=== PATIENT | female | born 1945 | race African-American/Black ===

== ENCOUNTER 2019-03-05 13:34 | Emergency (ER) | payer OTHER ==
[~2019-03-05] VITALS: Ht 165.1 cm; Wt 77.0 kg
[2019-03-05] MEDS ORDERED: ASPIRIN 81MG TABLET PO ONE (14:45)
[2019-03-05 15:08] LABS: BASOPHILS % 0.8 % (0.0-2.0); EOSINOPHILS % 1.6 % (0.0-5.0); HEMOGLOBIN. 11.8 g/dL (12.0-16.0); LYMPHOCYTES % 29.8 % (20.0-50.0); MEAN CORPUSCULAR HEMOGLOBIN 31.8 pg (28.0-32.0); MEAN CORPUSCULAR VOLUME 94.3 fL (81.0-99.0); MEAN PLATELET VOLUME 7.6 fl (7.4-10.4); MONOCYTES % 6.7 % (2.0-8.0); NEUTROPHILS % 61.1 % (40.0-76.0); PLATELET 258 x1000/uL (130-400); RED BLOOD CELL COUNT 3.71 mill/uL (4.2-5.4); RED CELL DISTRIBUTION WIDTH 13.2 % (11.6-14.6)
[2019-03-05 15:09] LABS: CHLORIDE 110 mEq/L (98-107)
[2019-03-05 18:54] VITALS: BP 171/69
== END 2019-03-05 19:13 | disposition short-term general hospital (02) ==
LOC: ER 13:34
DX: R07.9 Chest pain, unspecified (principal); E11.9 Type 2 diabetes mellitus without complications; I10 Essential (primary) hypertension; I20.9 Angina pectoris, unspecified; Z88.5 Allergy status to narcotic agent
CPT/HCPCS: 36415; 71045; 83880; 84484; 93005; 99285; A4315

== ENCOUNTER 2020-06-08 11:41 | Emergency (ER) | payer OTHER, MEDICARE ==
[~2020-06-08] VITALS: Ht 165.1 cm; Wt 68.0 kg
[2020-06-08] MEDS ORDERED: ASPIRIN 81MG TABLET PO ONE (12:15)
[2020-06-08 12:47] LABS: BASOPHILS % 0.5 % (0.0-2.0); HEMATOCRIT. 33.6 % (36.0-48.0); HEMOGLOBIN. 11.3 g/dL (12.0-16.0); MEAN CORPUSCULAR HEMOGLOBIN 31.5 pg (28.0-32.0); MEAN CORPUSCULAR VOLUME 93.7 fL (81.0-99.0); MEAN PLATELET VOLUME 7.5 fl (7.4-10.4); MONOCYTES % 8.3 % (2.0-8.0); NEUTROPHILS % 55.2 % (40.0-76.0); PLATELET 267 x1000/uL (130-400); RED BLOOD CELL COUNT 3.58 mill/uL (4.2-5.4); RED CELL DISTRIBUTION WIDTH 12.7 % (11.6-14.6)
[2020-06-08 12:55] LABS: CHLORIDE 109 mEq/L (98-107)
[2020-06-08 13:32] LABS: D-DIMER 0.31 mg/L FEU (<0.50); PARTIAL THROMBOPLASTIN TIME 25.3 sec (23.4-31.0); PROTHROMBIN TIME 10.4 sec (9.6-11.0)
[2020-06-08 16:10] VITALS: BP 147/62
== END 2020-06-08 16:11 | disposition short-term general hospital (02) ==
LOC: ER 11:41 → CANBEDREQ 16:45
DX: R07.89 Other chest pain (principal); I25.2 Old myocardial infarction; E11.9 Type 2 diabetes mellitus without complications; I10 Essential (primary) hypertension; Z88.5 Allergy status to narcotic agent
CPT/HCPCS: 36415; 71045; 80053; 83880; 84484; 85025; 85379; 85610; 85730; 93005; 99285; Z7610

== ENCOUNTER 2021-07-01 15:57 | Emergency (ER) | payer OTHER, MEDICARE ==
[~2021-07-01] VITALS: Ht 165.1 cm; Wt 70.0 kg
[2021-07-01] MEDS ORDERED: TETANUS, DIPHTHERIA, PERTUSSIS VAC/PF 0.5ML (>10YR OLD) IM ONE (17:00)
[2021-07-01] MEDS ORDERED: LIDOCAINE HCL/PF 1% 10 MG/ML 5ML VIAL INFIL ONE ×2 (17:00)
[2021-07-01] MEDS ORDERED: SODIUM CHLORIDE 0.9% 1,000 ML IV ONE (17:00)
[2021-07-01] MEDS ORDERED: BACITRACIN ZINC OINT UDPKT TOP ONE (17:00)
[2021-07-01 17:09] LABS: BASOPHILS % 0.4 % (0.0-2.0); EOSINOPHILS % 4.2 % (0.0-5.0); HEMATOCRIT. 31.8 % (36.0-48.0); HEMOGLOBIN. 10.5 g/dL (12.0-16.0); LYMPHOCYTES % 14.3 % (20.0-50.0); MEAN CORPUSCULAR HEMOGLOBIN 30.3 pg (28.0-32.0); MEAN PLATELET VOLUME 7.3 fl (7.4-10.4); MONOCYTES % 9.2 % (2.0-8.0); NEUTROPHILS % 71.9 % (40.0-76.0); PLATELET 355 x1000/uL (130-400); RED BLOOD CELL COUNT 3.46 mill/uL (4.2-5.4); RED CELL DISTRIBUTION WIDTH 12.9 % (11.6-14.6)
[2021-07-01 17:15] LABS: CHLORIDE 107 mEq/L (98-107)
[2021-07-01] MEDS ORDERED: LIDOCAINE HCL 1% 10 MG/ML 10ML VIAL INJ NR (17:15)
[2021-07-01] MEDS ORDERED: CEFTRIAXONE 1 G PREMIX 50 ML IV ONE (17:15)
[2021-07-01] MEDS ORDERED: ASPIRIN 325MG EC TABLET PO ONE (20:30)
[2021-07-02 00:32] VITALS: BP 122/52
== END 2021-07-01 23:44 ==
LOC: ER 15:57
DX: R55 Syncope and collapse (principal); S01.312A Laceration without foreign body of left ear, initial encounter; E11.9 Type 2 diabetes mellitus without complications; I10 Essential (primary) hypertension; I25.10 Atherosclerotic heart disease of native coronary artery without angina pectoris; I25.2 Old myocardial infarction; W18.39XA Other fall on same level, initial encounter; Y93.89 Activity, other specified; Y92.512 Supermarket, store or market as the place of occurrence of the external cause; Z88.6 Allergy status to analgesic agent
CPT/HCPCS: 12011; 36415; 70450; 71045; 80053; 82962; 83880; 84484; 85025; 90471; 90715; 93005; 96365; 99285; J0696; J3490; J7030

== ENCOUNTER 2021-08-10 14:04 | Emergency (ER) | payer OTHER, MEDICARE ==
[~2021-08-10] VITALS: Ht 167.6 cm; Wt 70.0 kg
[2021-08-10] MEDS ORDERED: ACETAMINOPHEN 325MG TABLET PO STA (14:54)
[2021-08-10] MEDS ORDERED: SODIUM CHLORIDE 0.9% 1,000 ML IV ONE (15:00)
[2021-08-10 15:04] LABS: BASOPHILS % 0.3 % (0.0-2.0); HEMATOCRIT. 26.4 % (36.0-48.0); HEMOGLOBIN. 8.2 g/dL (12.0-16.0); LYMPHOCYTES % 9.7 % (20.0-50.0); MEAN CORPUSCULAR HEMOGLOBIN 28.7 pg (28.0-32.0); MEAN CORPUSCULAR VOLUME 92.9 fL (81.0-99.0); MEAN PLATELET VOLUME 8.7 fl (7.4-10.4); MONOCYTES % 7.7 % (2.0-8.0); NEUTROPHILS % 79.3 % (40.0-76.0); PLATELET 356 x1000/uL (130-400); RED BLOOD CELL COUNT 2.84 mill/uL (4.2-5.4); RED CELL DISTRIBUTION WIDTH 16.8 % (11.6-14.6)
[2021-08-10 15:14] LABS: CHLORIDE 108 mEq/L (98-107)
[2021-08-10] MEDS ORDERED: VANCOMYCIN 1G PREMIX 200 ML IV NR (16:00)
[2021-08-10] MEDS ORDERED: PIPERACILLIN/TAZ 3.375G PREMIX 50 ML IV NR (17:00)
[2021-08-10 17:24] LABS: CLARITY URINE TURBID (CLEAR); COLOR URINE DARK YELLOW (YELLOW); KETONES URINE TRACE (NEGATIVE); LEUKOCYTE ESTERASE URINE TRACE (NEGATIVE); NITRITE URINE NEGATIVE (NEGATIVE); OCCULT BLOOD URINE 1+ (NEGATIVE); PROTEIN URINE 2+ (NEGATIVE); SPECIFIC GRAVITY URINE 1.019 (1.005-1.030)
[2021-08-10 23:31] VITALS: BP 121/63
== END 2021-08-10 23:52 | disposition short-term general hospital (02) ==
LOC: ER 14:04 → EDBEDREQ 15:55 → EDBEDREQTM 15:55 → ER 23:52 → CANBEDREQ 08-11 00:05
DX: A41.9 Sepsis, unspecified organism (principal); R65.20 Severe sepsis without septic shock; J18.9 Pneumonia, unspecified organism; N17.9 Acute kidney failure, unspecified; D64.9 Anemia, unspecified; Z88.5 Allergy status to narcotic agent
CPT/HCPCS: 36415; 70450; 71045; 74176; 80053; 81003; 83605; 83690; 83880; 84145; 84484; 85025; 87040; 87086; 87106; 96361; 96365; 96367; 99291; J2543; J3370

== ENCOUNTER 2021-08-15 02:43 | Emergency (ER) | payer MEDICARE, OTHER ==
[~2021-08-15] VITALS: Ht 165.1 cm; Wt 60.0 kg
[2021-08-15] MEDS ORDERED: NOREPINEPHRINE 8MG/250ML PMX 250 ML IV STA (03:12)
[2021-08-15] MEDS ORDERED: PIPERACILLIN/TAZ 3.375G PREMIX 50 ML IV ONE (03:15)
[2021-08-15] MEDS ORDERED: SODIUM CHLORIDE 0.9% 1000ML BAG (SEPSIS BOLUS) IV ONE (03:15)
[2021-08-15] MEDS ORDERED: VANCOMYCIN 1G PREMIX 200 ML IV ONE (03:15)
[2021-08-15 03:54] LABS: CHLORIDE 119 mEq/L (98-107)
[2021-08-15 04:17] LABS: CLARITY URINE TURBID (CLEAR); COLOR URINE DARK YELLOW (YELLOW); KETONES URINE NEGATIVE (NEGATIVE); LEUKOCYTE ESTERASE URINE 1+ (NEGATIVE); NITRITE URINE POSITIVE (NEGATIVE); OCCULT BLOOD URINE NEGATIVE (NEGATIVE); PROTEIN URINE 2+ (NEGATIVE); SPECIFIC GRAVITY URINE 1.021 (1.005-1.030)
[2021-08-15 04:18] LABS: HEMATOCRIT. 25.9 % (36.0-48.0); HEMOGLOBIN. 7.2 g/dL (12.0-16.0); MEAN CORPUSCULAR HEMOGLOBIN 28.7 pg (28.0-32.0); MEAN CORPUSCULAR VOLUME 103.5 fL (81.0-99.0); MEAN PLATELET VOLUME 9.9 fl (7.4-10.4); PLATELET 162 x1000/uL (130-400); RED CELL DISTRIBUTION WIDTH 18.6 % (11.6-14.6)
[2021-08-15 05:23] LABS: NUCLEATED RED BLOOD CELLS 5 /100 WBC
[2021-08-15 05:24] LABS: PLATELET ESTIMATE NORMAL
[2021-08-15] MEDS ORDERED: NOREPINEPHRINE 8MG/250ML PMX 250 ML IV ONE (06:00)
[2021-08-15] MEDS ORDERED: MORPHINE SULFATE 2 MG/ML CPJ (NOT FOR IM USE) IV PRN (07:15)
[2021-08-15] MEDS ORDERED: DIPHENHYDRAMINE 50MG/ML VIAL IV PRN (07:15)
[2021-08-15] MEDS ORDERED: SODIUM CHLORIDE 0.45% 1,000 ML IV SCH (07:15)
[2021-08-15] MEDS ORDERED: ONDANSETRON HCL 4MG/2ML INJ IV PRN (07:15)
[2021-08-15] MEDS ORDERED: HYDROCODONE/ACETAMINOPHEN 5/325MG TABLET PO PRN (07:15)
[2021-08-15] MEDS ORDERED: HYDRALAZINE 20MG/ML VIAL IV PRN (07:15)
[2021-08-15] MEDS ORDERED: DOCUSATE SODIUM 100MG CAPSULE PO PRN (07:15)
[2021-08-15] MEDS ORDERED: IPRATROPIUM/ALBUTEROL 0.5-3(2.5)MG/3ML NEB HHN PRN (07:15)
[2021-08-15] MEDS ORDERED: MAGNESIUM/ALUMINUM HYDROXIDE/SIMETHICONE 30ML UDC PO PRN (07:15)
[2021-08-15] MEDS ORDERED: GUAIFENESIN 200MG/10ML SUGAR FREE UDC PO PRN (07:15)
[2021-08-15] MEDS ORDERED: CLONIDINE 0.1MG TABLET PO PRN (07:15)
[2021-08-15] MEDS ORDERED: LORAZEPAM 2MG/ML CPJ IV PRN (07:15)
[2021-08-15] MEDS ORDERED: ACETAMINOPHEN 325MG TABLET PO PRN (07:15)
[2021-08-15] MEDS ORDERED: NOREPINEPHRINE 8MG/250ML PMX 250 ML IV PRN (07:45)
[2021-08-15] MEDS ORDERED: NALOXONE HCL 0.4MG/ML VIAL IV PRN (08:00)
[2021-08-15] MEDS ORDERED: PHENYLEPHRINE 50 MG in DEXT 5% WATER 245 ML IV PRN ×2 (08:15→09:00)
[2021-08-15] MEDS ORDERED: SODIUM CHLORIDE 0.9% 10ML VIAL ONE (08:36)
[2021-08-15] MEDS ORDERED: ETOMIDATE 2MG/ML 10ML VIAL IV ONE (08:36)
[2021-08-15] MEDS ORDERED: VECURONIUM BROMIDE 10 MG/VIAL IV ONE (08:36)
[2021-08-15] MEDS ORDERED: EPINEPHRINE 0.1MG/ML (1:10,000) 10ML SYR ONE (08:37)
[2021-08-15] MEDS ORDERED: SODIUM BICARBONATE 150 MEQ in DEXTROSE 5% WATER 1,000 ML IV SCH (09:00)
[2021-08-15 10:00] LABS: BG CARBOXYHEMOGLOBIN 0.7 % (0.5-1.5); BG FRACTION INSPIRED OXYGEN 100; BG METHEMOGLOBIN 0.2 % (0.0-1.5); BG OXYGEN SATURATION 46.5 % (92.0-98.5); BG OXYHEMOGLOBIN 46.1 % (94.0-97.0); BG PCO2 39.6 mmHg (35.0-45.0); BG PH < 6.680 (7.350-7.450); BG PO2 47.8 mmHg (75.0-100.0); BG SAMPLE SITE LEFT FEMORAL; BG TOTAL HEMOGLOBIN 7.9 g/dL (12.0-18.0); BG VENT MODE VENT - AC
[2021-08-15] MEDS ORDERED: PIPERACILLIN/TAZ 3.375G PREMIX 50 ML IV SCH (10:00)
[2021-08-15 10:43] VITALS: BP 50/33
[2021-08-15] MEDS ORDERED: SODIUM CHLORIDE 0.9% INJ 3ML FLUSH IVF SCH (14:00)
[2021-08-15] MEDS ORDERED: SODIUM POLYSTYRENE SULFONATE 15 G/60 ML BOT PO ONE (14:15)
== END 2021-08-15 15:42 | disposition admitted as inpatient to this hospital (09) ==
LOC: ER 02:55 → EDBEDREQTM 06:31 → EDBEDREQ 06:31 → EDBEDREQSVC 06:31 → CANBEDREQ 11:39 → ER 15:42
DX: A41.9 Sepsis, unspecified organism (principal); R65.21 Severe sepsis with septic shock; I10 Essential (primary) hypertension; I25.2 Old myocardial infarction; Z86.73 Personal history of transient ischemic attack (TIA), and cerebral infarction without residual deficits; Z85.6 Personal history of leukemia
CPT/HCPCS: 31500; 36415; 36556; 36600; 70450; 71045; 80053; 81003; 82375; 82805; 82962; 83605; 84145; 85025; 87040; 87086; 93005; 96365; 96367; 96375; 99291; J2543; J3370; J3490; J7030; J7070; Z7610; 94002